=== PATIENT | male | born 1995 ===

== ENCOUNTER 2025-08-09 09:47 | Outpatient (REF) | payer MEDICARE, MEDICAID, SELFPAY ==
[2025-08-09 15:58] LABS: HCT 47.7 % (40.0-50.0); HGB 16.4 g/dL (13.5-17.5); MCH 30.6 pg (27.0-33.0); MCHC 34.4 % (32.0-36.0); MCV 89 fL (80-95); MPV 11.6 fL (8.0-11.0); Platelet Count 255 10^3/uL (130-400); RBC 5.36 10^6/uL (4.36-5.78); RDW 12.0 % (11.8-14.1); RDW-SD 39.0 fL; WBC 11.79 10^3/uL (4.4-10.8)
[2025-08-09 16:17] LABS: ALT 72 U/L (16-63); AST 23 U/L (15-37); Albumin 3.9 g/dL (3.4-5.0); Alkaline Phosphatase 75 U/L (46-116); Anion Gap 12.4 mmol/L (3-11); BUN 10 mg/dL (7-18); Bilirubin, Total 0.3 mg/dL (0.2-1.0); CO2 22.6 mmol/L (21.0-32.0); Calcium 9.3 mg/dL (8.5-10.1); Chloride 102 mmol/L (98-107); Cholesterol 178 mg/dL (<200); Estimated GFR 117.10 (mL/min/1.73m2); Glucose 359 mg/dL (74-106); HDL Cholesterol 18 mg/dL (>or=40); Magnesium 1.7 mg/dL (1.8-2.4); Potassium 4.0 mmol/L (3.5-5.1); Sodium 137 mmol/L (136-145); TSH 0.66 uIU/mL (0.36-3.74); Total Protein 7.5 g/dL (6.4-8.2); Triglyceride 731 mg/dL (<150)
[2025-08-09 16:40] LABS: Hemoglobin A1C 12.4 % (<5.7)
[2025-08-09 16:41] LABS: LDL CHOLESTEROL 68 mg/dL (<100)
== END 2025-08-09 09:48 | disposition home or self-care (01) ==
LOC: NCHCN 09:47
PROVIDERS: PCP Family Medicine; Visit Provider Physician Assistant
DX: Z13.6 Encounter for screening for cardiovascular disorders (principal); Z13.1 Encounter for screening for diabetes mellitus; Z13.220 Encounter for screening for lipoid disorders
CPT/HCPCS: 80053; 80061; 83721; 85027; 83036; 83735; 84443